=== PATIENT | male | born 1945 | race Caucasian/White ===

== ENCOUNTER → 2017-02-18 | Outpatient (CLI) | payer OTHER ==
[~2017-02-18] MED LIST: GLUC10007; GLUCOSAMINE 2000 MG PO; METO50TA16 PO; MULT-506 PO; NAPR1TAB9 PO; TELM40TA11 PO
[2017-02-18 17:39] LABS: SYNOVIAL FLUID APPEARANCE HAZY; SYNOVIAL FLUID COLOR YELLOW
[2017-02-23 04:30] LABS: LYME DNA PCR CSF OR SYNOVIAL Not detected (Not Detected); LYME DNA SOURCE Synovial Fluid
== END ==
LOC: C.LABSPEC 12:51
PROVIDERS: ATTEND Orthopaedic Surgery
DX: M25.461 Effusion, right knee (principal)

== ENCOUNTER → 2017-07-02 | Outpatient (CLI) | payer OTHER ==
[2017-07-02 12:38] LABS: BASO % 0.4 %; BASO ABS # 0.02 K/uL (0-0.2); COMPLETE YES; EOS % 4.1 %; HEMATOCRIT 44.3 % (42-52); IG% 0.2 %; LYMPH % 26.4 %; LYMPH ABS # 1.24 K/uL (1.2-3.4); MEAN CELL VOLUME 98.9 fL (80-100); MEAN CORPUSCULAR HEMOGLOBIN 34.4 pg (25-34); MEAN CORPUSCULAR HGB CONC 34.8 g/dl (32-36); MONO % 7.7 %; NEUT % 61.2 %; PLATELET COUNT 136 K/uL (130-400); RED BLOOD COUNT 4.48 M/uL (4.7-6.1); WHITE BLOOD COUNT 4.69 K/uL (4.8-10.8)
[2017-07-02 12:59] LABS: ALT/SGPT 40 U/L (12-78); AST/SGOT 19 U/L (15-37); BLOOD UREA NITROGEN 20 mg/dl (7-18); BUN/CREATININE RATIO 18.2 (10-20); CALCIUM 8.5 mg/dl (8.5-10.1); CARBON DIOXIDE 27 mmol/L (21-32); CHLORIDE 107 mmol/L (98-107); GLUCOSE 137 mg/dl (70-99); POTASSIUM 4.5 mmol/L (3.5-5.1); SODIUM 139 mmol/L (136-145)
[2017-07-02 13:05] LABS: ALB/GLOB RATIO 1.1 (0.9-2); ALKALINE PHOSPHATASE 68 U/L (45-117); CHOLESTEROL 254 mg/dl (0-200); CHOLESTEROL/HDL RATIO 7.7; HDL CHOLESTEROL 33 mg/dl; PROSTATE SPECIFIC ANTIGEN 0.709 ng/ml (0.000-4.000); TRIGLYCERIDES 598 mg/dl (0-150)
[2017-07-02 13:13] LABS: ESTIMATED AVERAGE GLUCOSE 137 mg/dl; HA1C FLAG Normal (Normal)
--- NOTE | 2017-07-09 16:23 | CODING QUERY MEDICAL NECESSITY ---
SUPPORTING DIAGNOSIS NEEDED A supporting diagnosis is required for the test/procedure performed on this patient in order for us to be reimbursed by the patient's insurance. Please provide a supporting diagnosis for the following test/procedure listed below next to the test name along with your signature. *If there is no additional diagnosis for this patient that would support the following test/procedure please document that below next to the test/procedure. Test(s)/Procedure(s) that require a supporting diagnosis: * HEMOGLOBIN A1C DIAGNOSIS: Provider Signature: Date: Thank you Linnette Koroma [employer] Once completed, please kindly fax back to [phone] For questions please call [phone]
== END | disposition home or self-care (01) ==
LOC: C.LABPVFM 08:41
PROVIDERS: ATTEND Internal Medicine
DX: N40.1 Benign prostatic hyperplasia with lower urinary tract symptoms (principal); R73.09 Other abnormal glucose

== ENCOUNTER → 2018-02-10 | Outpatient (CLI) | payer OTHER ==
[2018-02-10 13:11] LABS: BASO % 0.6 %; BASO ABS # 0.03 K/uL (0-0.2); EOS % 5.6 %; EOS ABS # 0.28 K/uL (0-0.5); HEMATOCRIT 47.1 % (42-52); IG# 0.01 K/uL (0.00-0.02); LYMPH % 23.6 %; LYMPH ABS # 1.19 K/uL (1.2-3.4); MEAN PLATELET VOLUME 11.4 fL (7.4-10.4); MONO % 7.5 %; MONO ABS # 0.38 K/uL (0.11-0.59); NEUT % 62.5 %; NEUT ABS # 3.15 K/uL (1.4-6.5); PLATELET COUNT 127 K/uL (130-400); RED CELL DISTRIBUTION WIDTH SD 47.5 fL (36.4-46.3); WHITE BLOOD COUNT 5.04 K/uL (4.8-10.8)
[2018-02-10 13:39] LABS: HEMOGLOBIN A1C 6.5 % (4.5-5.6)
[2018-02-10 13:53] LABS: ALBUMIN 3.7 gm/dl (3.4-5.0); ALT/SGPT 41 U/L (12-78); AST/SGOT 23 U/L (15-37); BLOOD UREA NITROGEN 22 mg/dl (7-18); CALCIUM 8.8 mg/dl (8.5-10.1); CARBON DIOXIDE 31 mmol/L (21-32); CHOLESTEROL 233 mg/dl (0-200); CREATININE 1.02 mg/dl (0.60-1.40); GLUCOSE 154 mg/dl (70-99); POTASSIUM 4.2 mmol/L (3.5-5.1); SODIUM 138 mmol/L (136-145)
[2018-02-10 13:57] LABS: ALKALINE PHOSPHATASE 59 U/L (45-117); LDL CHOLESTEROL CALCULATED 133 mg/dl; TOTAL PROTEIN 7.2 gm/dl (6.4-8.2)
== END | disposition home or self-care (01) ==
LOC: C.LABPVFM 10:41
PROVIDERS: ATTEND Internal Medicine
DX: I10 Essential (primary) hypertension (principal); R73.03 Prediabetes; N40.1 Benign prostatic hyperplasia with lower urinary tract symptoms; E78.5 Hyperlipidemia, unspecified; E78.1 Pure hyperglyceridemia; E78.6 Lipoprotein deficiency; R73.09 Other abnormal glucose

== ENCOUNTER 2024-12-19 12:40 | Inpatient (IN) ==
[2024-12-19 14:31] LABS: Basophils # (auto) 0.04 K/uL (0.00-0.20); Basophils % (auto) 0.6 %; Eosinophils # (auto) 0.11 K/uL (0.00-0.50); Eosinophils % (auto) 1.5 %; Hematocrit (blood only) 46.2 % (42.0-52.0); Hemoglobin 15.5 g/dl (14.0-18.0); Immature Granulocytes # (auto) 0.03 K/uL (0.01-0.20); Immature Granulocytes % (auto) 0.4 %; Lymphocytes # (auto) 0.72 K/uL (1.20-3.40); Lymphocytes % (auto) 10.1 %; Mean Corpuscular Hgb Conc 33.5 g/dL (32.0-36.0); Mean Corpuscular Volume 107.4 fL (80.0-100.0); Mean Platelet Volume 10.9 fL (9.4-12.4); Monocytes # (auto) 0.48 K/uL (0.11-0.59); Monocytes % (auto) 6.7 %; Neutrophils # (auto) 5.77 K/uL (1.40-6.50); Neutrophils % (auto) 80.7 %; Platelet Count 103 K/uL (130-400); RDW Coefficient of Variation 14.6 % (11.5-14.5); RDW Standard Deviation 58.4 fL (36.4-46.3); White Blood Count 7.15 K/ul (4.8-10.8)
--- NOTE | 2024-12-19 14:43 | Ultrasound Report ---
BILATERAL LOWER EXTREMITY VENOUS DOPPLER HISTORY: Acute penciling of the lower legs b/l leg swelling COMPARISON STUDY: None FINDINGS: Subcutaneous edema. There is normal compressibility, flow, and augmentation within the bila teral lower extremity deep venous systems. IMPRESSION: No DVT within the right or left lower extremity. ACT 112: Negative or not required by law. Electronically signed by: Abdulkadir Lipscomb M.D. 12/19/2024 2:41 PM
[2024-12-19 14:48] LABS: Albumin Globulin Ratio 1.5 (0.9-2); Albumin Level 4.2 gm/dl (3.4-5.0); BUN Creatinine Ratio 26.3 (10-20); Bilirubin,Total 1.1 mg/dl (0.2-1.0); Calcium 9.5 mg/dl (8.6-10.3); Creatinine Clr Calc Pharmacy 65.5 ml/min; Globulin 2.8 gm/dl (2.5-4.0); Potassium 4.5 mmol/L (3.5-5.1)
[2024-12-19 14:54] LABS: Partial Thromboplastin Time 26 Seconds (21-31); Prothrombin Time 11.3 Seconds (9.0-12.0)
[2024-12-19 15:16] LABS: Troponin I High Sensitivity 71.7 pg/ml (0-20)
--- NOTE | 2024-12-19 15:23 | XRay Report ---
XR chest 1V not portable HISTORY: 79 years-old Male SOB acute shortness of breath COMPARISON: None TECHNIQUE: PA view of the chest FINDINGS: Cardiac silhouette is enlarged. ORIF hardware of the right clavicle. Chronic bilateral rib fracture d eformities. No pneumothorax, pleural effusion or lobar airspace consolidation. IMPRESSION: Cardiomegaly without acute process. ACT 112: Negative or not required by law. The above report was generated using voice recognition software. It may contain grammatical, syntax o r spelling errors. Electronically signed by: Abdulkadir Lipscomb M.D. 12/19/2024 3:22 PM
[2024-12-19] MEDS: OPTIRAY 320 125ml IV ONE (17:48)
--- NOTE | 2024-12-19 18:15 | CT Scan Report ---
Exam: CT angiogram chest with the pulmonary embolus protocol Reason for exam: Leg swelling with elevated troponin, CHF. Rule out pulmonary embolus. Previous: None FINDINGS: There is good opacification of the pulmonary artery bilaterally. No filling defect to indicate embolus is seen on either side. Aorta shows extensive calcifications. Dissection cannot be evaluated due to lack of opacification. Severe coronary artery calcifications are present as well. There is cardiomegaly with small bilateral pleural effusions. Findings may represent mild chronic CHF. Lung zones remain essentially clear without acute appearing infiltrate or edema. IMPRESSION: 1. Negative for pulmonary embolus. 2. Cardiomegaly with small pleural effusions may indicate chronic CHF. Extensive coronary artery calcifications are present. 3. Essentially clear lung zones. Electronically signed by Humphrey Hyman 12-19-2024 6:15 PM
--- NOTE | 2024-12-19 18:49 | History & Physical Report ---
Date of Service December 19, 2024 Assessment & Plan (1) Congestive heart failure: Plan: Initially patient wished to be discharged from the emergency room however left ventricular ejection fraction appears reduced on POCUS at bedside and with his ongoing rapid ventricular rate he is amenable to admission at this time Acute heart failure with unknown ejection fraction Lasix 40mg IV daily Increase metoprolol succinate to 50mg PO BID Will hold telmisartan/HCTZ for potential switch to Entresto if LVEF confirmed < 40% on echocardiogram Consider SGLT2 inhibitor with concurrent diabetes diagnosis Strict I's and O's, daily weight TTE Consult cardiology (2) Atrial fibrillation with rapid ventricular response: Plan: New onset TSH 2.249 Start anticoagulation with Eliquis - [id number], no prior major evidence of bleeding Improve rate control with his already prescribed metoprolol succinate increasing to 50 mg p.o. BID Aim Mg > 2, K > 4 (3) Type 2 diabetes mellitus without complications: Plan: HbA1C 5.9 in June, repeat with AM labs Novolog for correction factor only, if needing frequently recommend adding Lantus Consider SGLT-2 inhibitor pending clinical course (4) Elevated MCV: Plan: Possibly concerning with his weight loss despite significant hypervolemia TSH normal, B12, folate, retic count, LDH, peripheral smear (5) Elevated troponin: Plan: Stable, consistent with demand ischemia in setting of heart failure and atrial fibrillation with rapid ventricular rate, no need to repeat Plan VTE Prophylaxis - Eliquis Diet - low-sodium, heart healthy, type 2 diabetes Disposition - admit to PCU Admission and Anticipated Discharge Date Admission Date: December 19, 2024 History of Present Illness Chief Complaint: Leg swelling Primary Care Provider: Corina Herrera MD Collins Greer is a 79-year-old male who presents to the ER with bilateral leg swelling and shortness of breath. He noticed swelling of the legs just today and tried calling his PCP but reports being unable to get a hold of anyone therefore decided to come to the emergency room. He reports his legs appeared better after coming to the emergency room. He was concerned about his leg swelling as this was something he was told to look out for after his steroid shots a week ago. He denies any chest pain, palpitations, presyncope, weight gain. He notes losing weight as he does not eat as much with his last appetite and is much less active over the last several months. No gastrointestinal or urinary symptoms. No fever or chills. On review of systems he does note shortness of breath getting gradually worse over several months but over the last 2 to 3 months has not changed much on exertion. No orthopnea or PND. No shortness of breath at rest. He drinks 2 shots of whiskey a day, no history of alcohol withdrawal. No tobacco or illicit drug use. Allergies Allergy/AdvReac Type Severity Reaction Status Date / Time adhesive tape Allergy Unknown RASH WITH Verified 12/11/24 08:45 WATER BEADS ON IT codeine Allergy Unknown HIVES, HAS Verified 12/11/24 08:45 HAD MORPHINE W/O PROBLEM coban Allergy Intermediate rash, Uncoded 12/11/24 08:45 blisters BANDAIDS Allergy Unknown RASH WITH Uncoded 12/11/24 08:45 WATER BEADS ON IT Home Medications Medication Instructions Recorded Confirmed Type multivitamin 1 tab PO DAILY 09/14/20 12/19/24 History tamsulosin 0.4 mg capsule 0.4 mg PO QAM #90 caps 03/22/24 12/19/24 Rx telmisartan 40 1 tab PO QAM #90 tabs 06/09/24 12/19/24 Rx mg-hydrochlorothiazide 12.5 mg tablet meloxicam 15 mg tablet 15 mg PO QAM #90 tabs 06/20/24 12/19/24 Rx allopurinol 300 mg tablet 300 mg PO QAM #90 tabs 09/29/24 12/19/24 Rx finasteride 5 mg tablet 5 mg PO QAM #90 tabs 09/29/24 12/19/24 Rx metformin 500 mg tablet 500 mg PO QAM #90 tabs 09/29/24 12/19/24 Rx metoprolol succinate 50 mg 50 mg PO QAM #90 tabs 09/29/24 12/19/24 Rx tablet,extended release 24 hr glucosamine sulfate 500 mg capsule 1,000 mg PO QAM 12/11/24 12/19/24 History Past Med/Surg History Problem List (Updated 12/19/24 @ 22:17 by Sameer Earl MD) Elevated MCV Elevated troponin (Acute) Congestive heart failure (Acute) Atrial fibrillation with rapid ventricular response (Acute) Skin lesion of scalp Thoracic compression fracture [id number] superior endplate Spinal stenosis of lumbar region Idiopathic polyneuropathy Lumbosacral radiculopathy Radicular pain of right lower extremity Ambulatory dysfunction Lumbar facet arthropathy Chronic low back pain Right thigh pain Shortness of breath Bilateral primary osteoarthritis of knee Thrombocytopenia (Acute) Lump of right breast (Acute) Low HDL (under 40) (Acute) Hypertriglyceridemia (Chronic) Dyslipidemia (Chronic) Closed right acetabular fracture (Acute) Type 2 diabetes mellitus without complications (Chronic) Eczema (Chronic) Pain in medial right lower extremity Tick bite Abnormal finding on ultrasound Cough Medical History History of eye problem Pre-diabetes Enlarged prostate Varicose vein of leg 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 Gout Hypertension Surgical History History of carpal tunnel surgery History of left knee surgery History of prior ablation treatment History of colonoscopy History of cholecystectomy History of arthroplasty Family History Mother Stroke Diabetes Hypertension Father Diabetes Brain cancer Denies family history of Ovarian cancer Prostate cancer Heart disease Myocardial infarction Breast cancer Colorectal cancer Social History Smoking Status: Former smoker Tobacco Type: Cigarettes Age Started Using Tobacco: 16; Age Quit Using Tobacco: 51; packs per day: 2; Second Hand Exposure: No; Do You Dip or Chew Tobacco: No; Hx Alcohol Use: Yes Alcohol type: beer Alcohol Intake Frequency: 4 or More x per/Week Alcohol Intake Frequency Comment: 1-2 beers a day Hx Substance Use: No Preferred Language: Tunisian Communication Ability: Effective 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 Beliefs That Will Affect Care: None marital status: Current Living Situation: Spouse current occupational status: retired How many Children do You have: 2 Feels Safe at Home: Yes Childhood Exposure to Second-Hand Smoke: Yes Diet: regular caffeine: Yes Dental Care, Regularly: Yes Physical Activity Frequency: 1-2 Times per Week Seatbelt Use: always Sunscreen Use: No Assistive Devices: Denture - Upper and Glasses Review of Systems Review of Systems: All systems reviewed & are unremarkable except as noted in HPI & below Physical Exam Constitutional: WD/WN, vitals as above ENMT: external ear and nose normal, oropharynx normal Respiratory: normal respiratory effort; no respiratory distress Auscultation: + diminished lung sounds (Bibasal); no crackles and no wheezes Cardiovascular: Rate/Rhythm: + tachycardic and + irregularly irregular Heart Sounds: no murmur Extremities: normal capillary refill and + pedal edema (3+ bilateral equal); no calf tenderness Gastrointestinal (Abdomen): normal bowel sounds, soft, nontender, no hepatosplenomegaly Musculoskeletal: no cyanosis or clubbing, extremities motor strength 5/5 Skin: no rashes, warm and dry Neurologic: moves all extremities and awake; not confused Psychiatric: A+Ox3, euthymic affect Results & Data Results & Data Vital Signs (Past 12 Hours) Vital Signs Temp Pulse Resp BP Pulse Ox O2 Del Method 12/19/24 16:44 98 H 12/19/24 16:36 99 H 17 96 Room Air 12/19/24 12:58 36.9 C 122 H 139/69 94 Room Air Laboratory Results Abnormal lab results 12/19/24 12/19/24 Range/Units 14:03 16:13 RBC 4.30 L (4.70-6.10) M/uL MCV 107.4 H (80.0-100.0) fL MCH 36.0 H (25.0-34.0) pg RDW Std Deviation 58.4 H (36.4-46.3) fL RDW Coeff of Rosi 14.6 H (11.5-14.5) % Plt Count 103 L (130-400) K/uL Lymph # (Auto) 0.72 L (1.20-3.40) K/uL BUN 26 H (6-23) mg/dl BUN/Creatinine Ratio 26.3 H (10-20) Glucose 112 H (70-99(Fasting)) mg/dl Total Bilirubin 1.1 H (0.2-1.0) mg/dl AST 40 H (13-39) U/L Troponin I High Sens 71.7 H* 69.6 H* (0-20) pg/ml Diagnostic Findings XR chest 1V not portable HISTORY: 79 years-old Male SOB acute shortness of breath COMPARISON: None TECHNIQUE: PA view of the chest FINDINGS: Cardiac silhouette is enlarged. ORIF hardware of the right clavicle. Chronic bilateral rib fracture deformities. No pneumothorax, pleural effusion or lobar airspace consolidation. IMPRESSION: Cardiomegaly without acute process. CT angiogram chest with the pulmonary embolus protocol Reason for exam: Leg swelling with elevated troponin, CHF. Rule out pulmonary embolus. Previous: None FINDINGS: There is good opacification of the pulmonary artery bilaterally. No filling defect to indicate embolus is seen on either side. Aorta shows extensive calcifications. Dissection cannot be evaluated due to lack of opacification. Severe coronary artery calcifications are present as well. There is cardiomegaly with small bilateral pleural effusions. Findings may represent mild chronic CHF. Lung zones remain essentially clear without acute appearing infiltrate or edema. IMPRESSION: 1. Negative for pulmonary embolus. 2. Cardiomegaly with small pleural effusions may indicate chronic CHF. Extensive coronary artery calcifications are present. 3. Essentially clear lung zones. BILATERAL LOWER EXTREMITY VENOUS DOPPLER HISTORY: Acute penciling of the lower legs b/l leg swelling COMPARISON STUDY: None FINDINGS: Subcutaneous edema. There is normal compressibility, flow, and augmentation within the bilateral lower extremity deep venous systems. IMPRESSION: No DVT within the right or left lower extremity. Medications Administered ER medications given: None ECG Rate (beats per minute): 103 Rhythm: atrial fibrillation Findings: + PVC and + left axis deviation Comparison ECG Date: from (27 Mar 2018) Change: the following changes noted (Atrial fibrillation has replaced sinus rhythm) Code Status & VTE Plan Code Status Full VTE Prophylaxis Plan VTE Prophylaxis will be ordered: Yes PG Care Time/CCT Total # of Minutes Spent Total Time Spent with Patient: Total time spent is greater than 50% in coordination of care (as documented) at patient's floor/unit and/or counseling patient: Coding Level of Care Code 44270 INT INP/OBS CARE 3/75MIN Diagnoses Congestive heart failure I50.9 Atrial fibrillation with rapid ventricular response I48.91 Type 2 diabetes mellitus without complication, without long-term current use of insulin E11.9 Diabetes mellitus intermediate teacher insulin use: without intermediate teacher use Elevated MCV R71.8 Elevated troponin R79.89 (3) Type 2 diabetes mellitus without complications Diabetes mellitus intermediate teacher insulin use: without longterm use Qualified Code(s): E11.9 - Type 2 diabetes mellitus without complications
--- NOTE | 2024-12-19 19:18 | Emergency Department Note ---
Impression & Plan Atrial fibrillation with rapid ventricular response, Congestive heart failure, Elevated troponin ED Provider Note NAME: CHIQUITA CRUZ AGE: 79 SEX: M : 1945 ARRIVES VIA: Walk-In INFORMANT: Patient, ED PROVIDER(S): Mignon Abbasi MD CHIEF COMPLAINT: Leg swelling HPI: This is a 79-year-old male present for leg swelling. Patient states that over the past 1 to 2 days he has noticed increasing leg swelling, bilaterally. He has had pain in his groin as well. No history of blood clots. He does have shortness of breath that is new. He reports no specific chest pain however. He otherwise reports no fevers, chills, nausea or vomiting. Never in the heart failure before. No A-fib history. No blood thinners on board. ROS: See above HPI for pertinent positives & negatives. A total of 10 systems reviewed and were otherwise negative. PAST MEDICAL HISTORY: See Below PAST SURGICAL HISTORY: See Below FAMILY HISTORY: See Below SOCIAL HISTORY: See Below HOME MEDICATIONS: See Below ALLERGIES: See Below VITALS: See Below PHYSICAL EXAMINATION: General: resting comfortably in no acute distress Head: Normocephalic and atraumatic Eyes: Normal inspection, extraocular muscles intact Ear, nose, throat: Normal external exam Neck: Normal range of motion Respiratory: lungs clear to auscultation bilaterally Cardiovascular: Irregularly irregular rate/rhythm, no murmur GI: soft, nontender, no guarding or rebound Extremities: nontender, moves all extremities Neuro: The patient awake and alert, appropriately conversive, no focal deficits, symmetric faces Skin: Warm, dry, and intact MEDICAL DECISION MAKING: This is a 79-year-old male present for leg swelling. Patient currently appears well with new onset A-fib. He also has shortness of breath as well. -Triage did perform x-ray/DVT study -X-ray shows cardiomegaly without acute process -DVT study is negative -ECG independently interpreted by me with atrial fibrillation at a rate of 103, left axis deviation, normal QRS, normal QTc, no ST segment elevations consistent with STEMI criteria -Lab sent at triage prior to my evaluation. This shows an elevated troponin up to 72. This may be from his A-fib. Also consider CHF. With new onset A-fib unclear etiology, also consider PE. Will do CT of the chest to evaluate. -Patient's second troponin is stable at 69 -CTA reveals no acute pulmonary embolism but does reveal signs of CHF -Due to new onset CHF as well as A-fib/Trope elevation will admit for further workup. Concern for recent cardiac event causing CHF/A-fib Differential diagnosis: PE, CHF, A-fib, ACS Independent History obtained from: Diagnostics interpreted by me: ECG: See above Cardiac Monitoring: An order was placed for continuous cardiac monitoring. The monitor shows a rate of 109 with atrial fibrillation rhythm. Past Med/Surg History Problem List (Updated 12/19/24 @ 20:31 by Mignon Abbasi MD) Elevated troponin (Acute) Congestive heart failure (Acute) Atrial fibrillation with rapid ventricular response (Acute) Skin lesion of scalp Thoracic compression fracture [id number] superior endplate Spinal stenosis of lumbar region Idiopathic polyneuropathy Lumbosacral radiculopathy Radicular pain of right lower extremity Ambulatory dysfunction Lumbar facet arthropathy Chronic low back pain Right thigh pain Shortness of breath Bilateral primary osteoarthritis of knee Encounter for examination following treatment at hospital Colon cancer screening Encounter for pre-operative examination Thrombocytopenia (Acute) Lump of right breast (Acute) Low HDL (under 40) (Acute) Hypertriglyceridemia (Chronic) Dyslipidemia (Chronic) Closed right acetabular fracture (Acute) Type 2 diabetes mellitus without complications (Chronic) Routine health maintenance (Chronic) Eczema (Chronic) Pain in medial right lower extremity Tick bite Abnormal finding on ultrasound Cough Medical History History of eye problem Pre-diabetes Enlarged prostate Varicose vein of leg 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 Gout Hypertension Surgical History History of carpal tunnel surgery History of left knee surgery History of prior ablation treatment History of colonoscopy History of cholecystectomy History of arthroplasty Family History Mother Stroke Diabetes Hypertension Father Diabetes Brain cancer Denies family history of Ovarian cancer Prostate cancer Heart disease Myocardial infarction Breast cancer Colorectal cancer Social History Smoking Status: Former smoker Tobacco Type: Cigarettes Age Started Using Tobacco: 16; Age Quit Using Tobacco: 51; packs per day: 2; Second Hand Exposure: No; Do You Dip or Chew Tobacco: No; Hx Alcohol Use: Yes Alcohol type: beer Alcohol Intake Frequency: 4 or More x per/Week Alcohol Intake Frequency Comment: 1-2 beers a day Hx Substance Use: No Preferred Language: Georgian Communication Ability: Effective Manager English Required: No Beliefs That Will Affect Care: None marital status: Current Living Situation: Spouse current occupational status: retired How many Children do You have: 2 Feels Safe at Home: Yes Childhood Exposure to Second-Hand Smoke: Yes Diet: regular caffeine: Yes Dental Care, Regularly: Yes Physical Activity Frequency: 1-2 Times per Week Seatbelt Use: always Sunscreen Use: No Assistive Devices: Denture - Upper and Glasses Allergies Allergies Allergy/AdvReac Type Severity Reaction Status Date / Time adhesive tape Allergy Unknown RASH WITH Verified 12/11/24 08:45 WATER BEADS ON IT codeine Allergy Unknown HIVES, HAS Verified 12/11/24 08:45 HAD MORPHINE W/O PROBLEM coban Allergy Intermediate rash, Uncoded 12/11/24 08:45 blisters BANDAIDS Allergy Unknown RASH WITH Uncoded 12/11/24 08:45 WATER BEADS ON IT Home Meds Home Medications Medication Instructions Recorded Confirmed multivitamin 1 tab PO DAILY 09/14/20 12/19/24 glucosamine sulfate 500 mg capsule 1,000 mg PO QAM 12/11/24 12/19/24 Previous Rx's Medication Instructions Recorded tamsulosin 0.4 mg capsule 0.4 mg PO QAM #90 caps 03/22/24 telmisartan 40 1 tab PO QAM #90 tabs 06/09/24 mg-hydrochlorothiazide 12.5 mg tablet meloxicam 15 mg tablet 15 mg PO QAM #90 tabs 06/20/24 allopurinol 300 mg tablet 300 mg PO QAM #90 tabs 09/29/24 finasteride 5 mg tablet 5 mg PO QAM #90 tabs 09/29/24 metformin 500 mg tablet 500 mg PO QAM #90 tabs 09/29/24 metoprolol succinate 50 mg 50 mg PO QAM #90 tabs 09/29/24 tablet,extended release 24 hr Results & Data (ED) Vital Signs Vital Signs - 24 hr 12/19/24 12:58 12/19/24 16:36 12/19/24 16:44 Temperature 36.9 C Temperature Source Temporal Artery Scan Pulse Rate 122 H 99 H 98 H Pulse Rate [Left Apical] Pulse Rate from SpO2 Sensor 101 H Pulse Rhythm Regular Pulse Strength Normal Respiratory Rate 17 Respiratory Effort / Characteristics Non-Labored Spontaneous Respiratory Depth Normal Respiratory Pattern Regular Blood Pressure 139/69 Blood Pressure [Right Arm] Blood Pressure Mean 92 Blood Pressure Mean [Right Arm] Pulse Oximetry 94 96 Oxygen Delivery Method Room Air Room Air Sepsis Recent Fever Within 48 Hours No Sepsis New/Unexplained Change in Mental Status N/A Sepsis Action Taken by Nursing No Action Required 12/19/24 16:48 12/19/24 18:18 12/19/24 19:00 Temperature Temperature Source Pulse Rate 103 H 99 H 103 H Pulse Rate [Left Apical] Pulse Rate from SpO2 Sensor 99 H 102 H 97 H Pulse Rhythm Pulse Strength Respiratory Rate 19 18 18 Respiratory Effort / Characteristics Respiratory Depth Respiratory Pattern Blood Pressure 139/103 H 146/104 H 141/110 H Blood Pressure [Right Arm] Blood Pressure Mean 115 118 120 Blood Pressure Mean [Right Arm] Pulse Oximetry 95 95 96 Oxygen Delivery Method Room Air Room Air Room Air Sepsis Recent Fever Within 48 Hours Sepsis New/Unexplained Change in Mental Status Sepsis Action Taken by Nursing 12/19/24 20:07 12/19/24 20:23 Temperature Temperature Source Pulse Rate 111 H Pulse Rate [Left Apical] 104 H Pulse Rate from SpO2 Sensor Pulse Rhythm Pulse Strength Respiratory Rate 24 Respiratory Effort / Characteristics Non-Labored Spontaneous Respiratory Depth Normal Respiratory Pattern Regular Blood Pressure Blood Pressure [Right Arm] 144/108 H Blood Pressure Mean Blood Pressure Mean [Right Arm] 120 Pulse Oximetry 95 Oxygen Delivery Method Room Air Sepsis Recent Fever Within 48 Hours Sepsis New/Unexplained Change in Mental Status Sepsis Action Taken by Nursing Laboratory Data 12/19/24 14:03 12/19/24 14:03 Lab Results 12/19/24 12/19/24 12/19/24 Range/Units 14:03 16:13 20:07 WBC 7.15 (4.8-10.8) K/ul RBC 4.30 L (4.70-6.10) M/uL Hgb 15.5 (14.0-18.0) g/dl Hct 46.2 (42.0-52.0) % MCV 107.4 H (80.0-100.0) fL MCH 36.0 H (25.0-34.0) pg MCHC 33.5 (32.0-36.0) g/dL RDW Std Deviation 58.4 H (36.4-46.3) fL RDW Coeff of Rosi 14.6 H (11.5-14.5) % Plt Count 103 L (130-400) K/uL MPV 10.9 (9.4-12.4) fL Immature Gran % (Auto) 0.4 % Neut % (Auto) 80.7 % Lymph % (Auto) 10.1 % [place] % (Auto) 6.7 % Eos % (Auto) 1.5 % Baso % (Auto) 0.6 % Neut # (Auto) 5.77 (1.40-6.50) K/uL Lymph # (Auto) 0.72 L (1.20-3.40) K/uL [place] # (Auto) 0.48 (0.11-0.59) K/uL Eos # (Auto) 0.11 (0.00-0.50) K/uL Baso # (Auto) 0.04 (0.00-0.20) K/uL Immature Gran # (Auto) 0.03 (0.01-0.20) K/uL PT 11.3 (9.0-12.0) Seconds INR 1.0 (0.9-1.1) APTT 26 (21-31) Seconds PTT Ratio 1.0 Sodium 140 (136-145) mmol/L Potassium 4.5 (3.5-5.1) mmol/L Chloride 103 (98-107) mmol/L Carbon Dioxide 30 (21-32) mmol/L Anion Gap 7 (3-11) BUN 26 H (6-23) mg/dl Creatinine 0.99 (0.6-1.4) mg/dl Est Cr Clr Drug Dosing 65.5 ml/min eGFR 77.97 BUN/Creatinine Ratio 26.3 H (10-20) Glucose 112 H (70-99(Fasting)) mg/dl Calcium 9.5 (8.6-10.3) mg/dl Magnesium 1.6 L (1.7-2.4) mg/dl Total Bilirubin 1.1 H (0.2-1.0) mg/dl AST 40 H (13-39) U/L ALT 30 (7-52) U/L Alkaline Phosphatase 67 (34-104) U/L Troponin I High Sens 71.7 H* 69.6 H* (0-20) pg/ml Total Protein 7.0 (6.0-8.3) gm/dl Albumin 4.2 (3.4-5.0) gm/dl Globulin 2.8 (2.5-4.0) gm/dl Albumin/Globulin Ratio 1.5 (0.9-2) TSH 2.249 (0.300-4.500) uIu/ml Urine Color Dark Yellow Urine Appearance Clear (Clear) Urine pH 5.5 (4.5-7.5) Ur Specific [place] 1.020 (1.000-1.030) Urine Protein Negative (Negative) Urine Glucose (UA) Negative (Negative) Urine Ketones 1+ H (Negative) Urine Blood Negative (Negative) Urine Nitrite Negative (Negative) Urine Bilirubin Negative (Negative) Urine Urobilinogen Negative (Negative) Ur Leukocyte Esterase Negative (Negative) Administered Medications Discontinued Medications Ioversol (Optiray 320 125ml) 119 ml IV ONCE ONE Stop: 12/19/24 17:49 Last Admin: 12/19/24 17:48 Dose: 119 ml Documented By: KALPANA Imaging Data Radiologist's Impression: Chest X-Ray 12/19/24 13:05 XR chest 1V not portable HISTORY: 79 years-old Male SOB acute shortness of breath COMPARISON: None TECHNIQUE: PA view of the chest FINDINGS: Cardiac silhouette is enlarged. ORIF hardware of the right clavicle. Chronic bilateral rib fracture deformities. No pneumothorax, pleural effusion or lobar airspace consolidation. IMPRESSION: Cardiomegaly without acute process. ACT 112: Negative or not required by law. The above report was generated using voice recognition software. It may contain grammatical, syntax or spelling errors. Electronically signed by: Abdulkadir Lipscomb M.D. 12/19/2024 3:22 PM Venous Doppler Study 12/19/24 13:10 BILATERAL LOWER EXTREMITY VENOUS DOPPLER HISTORY: Acute penciling of the lower legs b/l leg swelling COMPARISON STUDY: None FINDINGS: Subcutaneous edema. There is normal compressibility, flow, and augmentation within the bilateral lower extremity deep venous systems. IMPRESSION: No DVT within the right or left lower extremity. ACT 112: Negative or not required by law. Electronically signed by: Abdulkadir Lipscomb M.D. 12/19/2024 2:41 PM Chest CTA 12/19/24 17:01 Exam: CT angiogram chest with the pulmonary embolus protocol Reason for exam: Leg swelling with elevated troponin, CHF. Rule out pulmonary embolus. Previous: None FINDINGS: There is good opacification of the pulmonary artery bilaterally. No filling defect to indicate embolus is seen on either side. Aorta shows extensive calcifications. Dissection cannot be evaluated due to lack of opacification. Severe coronary artery calcifications are present as well. There is cardiomegaly with small bilateral pleural effusions. Findings may represent mild chronic CHF. Lung zones remain essentially clear without acute appearing infiltrate or edema. IMPRESSION: 1. Negative for pulmonary embolus. 2. Cardiomegaly with small pleural effusions may indicate chronic CHF. Extensive coronary artery calcifications are present. 3. Essentially clear lung zones. Electronically signed by Humphrey Hyman 12-19-2024 6:15 PM Discharge Plan Visit Data Chief Complaint: Swelling/Edema to Extremity Stated Complaint: SWELLING IN LEGS, GROIN DISCOMFORT ED Provider: Mignon Abbasi Discharge Problem: Atrial fibrillation with rapid ventricular response, Congestive heart failure, Elevated troponin Forms Stand Alone Forms: [email or web address] Prescriptions Prescriptions: No Action telmisartan-hydrochlorothiazid 40-12.5 mg tablet 1 tab PO QAM Qty: 90 1RF meloxicam 15 mg tablet 15 mg PO QAM Qty: 90 1RF metoprolol succinate 50 mg tablet extended release 24 hr 50 mg PO QAM Qty: 90 1RF finasteride 5 mg tablet 5 mg PO QAM Qty: 90 1RF allopurinol 300 mg tablet 300 mg PO QAM Qty: 90 1RF metformin 500 mg tablet 500 mg PO QAM Qty: 90 1RF glucosamine sulfate 500 mg capsule 1,000 mg PO QAM Patient Comments: 500 mg PO TAKE 2 CAPSULES DAILY ; tamsulosin 0.4 mg capsule 0.4 mg PO QAM Qty: 90 3RF multivitamin Tablet 1 tab PO DAILY Patient Comments: PO TAKE 1 TABLET DAILY ; Referrals Referrals: Corina Herrera MD [Primary Care Provider] -
[2024-12-19 20:09] LABS: Thyroid Stimulating Hormone 2.249 uIu/ml (0.300-4.500)
[2024-12-19 20:20] LABS: Appearance Urine Clear (Clear); Bilirubin Urine Negative (Negative); Blood Urine Negative (Negative); Color Urine Dark Yellow; Glucose Urine UA Negative (Negative); Ketones Urine 1+ (Negative); Leukocyte Esterase Urine Negative (Negative); Nitrite Urine Negative (Negative); Protein Urine Negative (Negative); Urobilinogen Urine Negative (Negative); pH Urine 5.5 (4.5-7.5)
[2024-12-19 20:25] LABS: Magnesium 1.6 mg/dl (1.7-2.4)
[2024-12-19 20:31] LABS: Folate (Folic Acid),Ser orPlas > 22.30 ng/ml (>5.38)
[2024-12-19 20:32] LABS: Vitamin B12 260 pg/ml (180-914)
[2024-12-19] MEDS: FUROSEMIDE 40 MG/4 ML VIAL IV STA (20:51)
[2024-12-19 21:03] LABS: Protein Creatinine Ratio Urine 0.1 (0-0.2)
--- NOTE | 2024-12-19 21:12 | Electrocardiogram Report ---
Test Reason : Blood Pressure : */* mmHG Vent. Rate : 103 BPM Atrial Rate : * BPM P-R Int : * ms QRS Dur : 102 ms QT Int : 360 ms P-R-T Axes : * -68 67 degrees QTcB Int : 471 ms Atrial fibrillation with rapid ventricular response with premature ventricular or aberrantly conducte d complexes Left axis deviation Inferior infarct , age undetermined Anterior infarct , age undetermined Abnormal ECG When compared with ECG of 04-Apr-2018 21:11, QRS duration has increased Premature ventricular complexes are now Present Atrial fibrillation has replaced Sinus rhythm Confirmed by Timoteo Jennings ([id number]) on 12/19/2024 9:12:07 PM Referred By: Confirmed By: Timoteo Jennings
[2024-12-19] MEDS: MAGNESIUM SULFATE / D5W 1 GM/100 ML BAG IV SCH (21:57)
[2024-12-19] MEDS ORDERED: GLUCOSE 10 TAB/TUBE PO PRN (22:09)
[2024-12-19] MEDS ORDERED: DEXTROSE 50% 50 ML SYRINGE IV PRN (22:09)
[2024-12-19] MEDS ORDERED: GLUCOSE 40% GEL 15 GM TUBE PO PRN (22:09)
[2024-12-19] MEDS ORDERED: CARBOHYDRATES FOR HYPOGLYCEMIA PO PRN (22:09)
[2024-12-19] MEDS ORDERED: GLUCAGON FOR INJ 1 MG VIAL SQ PRN (22:09)
[2024-12-19] MEDS: METOPROLOL SUCC 50MG EXT REL TAB PO SCH (22:18)
[2024-12-19] MEDS: APIXABAN 5 MG TABLET PO SCH (22:19)
[2024-12-19] MEDS: INSULIN ASPART PER UNIT CHARGE SC SCH (22:26)
[2024-12-20 03:07] VITALS: TEMP 97.5
[2024-12-20 06:39] LABS: BUN Creatinine Ratio 25.5 (10-20); Calcium 8.8 mg/dl (8.6-10.3); Creatinine Clr Calc Pharmacy 76.7 ml/min; Magnesium 1.9 mg/dl (1.7-2.4); Potassium 4.2 mmol/L (3.5-5.1)
[2024-12-20 06:55] LABS: Hematocrit (blood only) 42.3 % (42.0-52.0); Hemoglobin 14.6 g/dl (14.0-18.0); Mean Corpuscular Hemoglobin 36.7 pg (25.0-34.0); Mean Corpuscular Hgb Conc 34.5 g/dL (32.0-36.0); Mean Corpuscular Volume 106.3 fL (80.0-100.0); Mean Platelet Volume 11.2 fL (9.4-12.4); Platelet Count 87 K/uL (130-400); RDW Coefficient of Variation 14.5 % (11.5-14.5); RDW Standard Deviation 57.1 fL (36.4-46.3); Red Blood Count 3.98 M/uL (4.70-6.10); White Blood Count 5.59 K/ul (4.8-10.8)
[2024-12-20 06:56] LABS: Basophils # (auto) 0.05 K/uL (0.00-0.20); Basophils % (auto) 0.9 %; Eosinophils # (auto) 0.14 K/uL (0.00-0.50); Eosinophils % (auto) 2.5 %; Immature Granulocytes # (auto) 0.02 K/uL (0.01-0.20); Immature Granulocytes % (auto) 0.4 %; Lymphocytes # (auto) 1.03 K/uL (1.20-3.40); Lymphocytes % (auto) 18.4 %; Monocytes % (auto) 10.7 %; Neutrophils # (auto) 3.75 K/uL (1.40-6.50); Neutrophils % (auto) 67.1 %; Platelet Estimate Decreased (Normal); RBC Morphology Unremarkable; Reticulocyte % 1.52 % (0.50-2.00)
[2024-12-20 07:16] LABS: Estimated Average Glucose 117 mg/dl; Hemoglobin A1C 5.7 % (4.5-5.6)
[2024-12-20 08:15] VITALS: BP 130/85; PULSE 77; RESP 20; O2SAT 97
[2024-12-20] MEDS: allopurinoL 300 MG TAB PO SCH (09:24)
[2024-12-20] MEDS: FUROSEMIDE 40 MG/4 ML VIAL IV SCH (09:24)
[2024-12-20] MEDS: TAMSULOSIN HCL 0.4 MG CAP PO SCH (09:24)
[2024-12-20] MEDS: CYANOCOBALAMIN 1000 MCG/ML VIAL IM SCH (09:25)
--- NOTE | 2024-12-20 09:41 | Cardiology Consultation ---
Date of Consultation December 20, 2024 Assessment & Plan (1) HFrEF (heart failure with reduced ejection fraction): (2) Atrial fibrillation with rapid ventricular response: (3) NSTEMI (non-ST elevated myocardial infarction): (4) Thrombocytopenia: Plan Given both LV and RV dilatation and decreased EF, the cardiomyopathy may more favor NONischemic etiologies due to Afib with RVR vs ETOH?? with low platelets, increased MCV would check B12 folate and recommend absolute ETOH cessation. Agree with NOAC and HR control with increased BB. Can cont his ARB telmesartan for now, but DC HCTZ in favor of loop diuretic. If EF does not improve post cardioversion, with change to Entresto. In addition, would add Jardiance for CHF. I will have a monitor MCOT set up for him at time of DC so I can follow the Afib and med titrate appropriately. I will see in 2 weeks in office-if he remains in Afib, will set up for OP cardioversion. EVENTUALLy will do ischemic work up after Afib is controlled. I think he is stable for DC later today. History of Present Illness Reason for Consultation: CHF new Afib [facility] Attending Physician: Shilo Roe MD History of Present Illness Collins Greer is a 79-year-old male who presents to the ER with bilateral leg swelling and shortness of breath. He noticed swelling of the legs just today and tried calling his PCP but reports being unable to get a hold of anyone the refore decided to come to the emergency room. In retrospect, he has been having increasing SOB as well as fatigue x 6months to a year. Has significant edema. Denies awareness of rapid HR or Afib however. DM x several years but controlled with just metformen. Not on statin. No prior CV work up in the past. He was concerned about his leg swelling as this was something he was told to look out for after his steroid shots a week ago. He denies any chest pain, palpitations, presyncope, weight gain. He notes losing weight as he does not eat as much with his last appetite and is much less active over the last several months. ECHO done this am shows moderately severe LV dysfunction with global hypokinesis, EF 30% range; both atrial large RA >LA, RV also appears hypokinetic and dilated; PA pressures about 40mmHg. Apparently has 2 shots of ETOH daily. Allergies Allergy/AdvReac Type Severity Reaction Status Date / Time adhesive tape Allergy Unknown RASH WITH Verified 12/11/24 08:45 WATER BEADS ON IT codeine Allergy Unknown HIVES, HAS Verified 12/11/24 08:45 HAD MORPHINE W/O PROBLEM coban Allergy Intermediate rash, Uncoded 12/11/24 08:45 blisters BANDAIDS Allergy Unknown RASH WITH Uncoded 12/11/24 08:45 WATER BEADS ON IT Home Medications Medication Instructions Recorded Confirmed Type multivitamin 1 tab PO DAILY 09/14/20 12/19/24 History tamsulosin 0.4 mg capsule 0.4 mg PO QAM #90 caps 03/22/24 12/19/24 Rx telmisartan 40 1 tab PO QAM #90 tabs 06/09/24 12/19/24 Rx mg-hydrochlorothiazide 12.5 mg tablet meloxicam 15 mg tablet 15 mg PO QAM #90 tabs 06/20/24 12/19/24 Rx allopurinol 300 mg tablet 300 mg PO QAM #90 tabs 09/29/24 12/19/24 Rx finasteride 5 mg tablet 5 mg PO QAM #90 tabs 09/29/24 12/19/24 Rx metformin 500 mg tablet 500 mg PO QAM #90 tabs 09/29/24 12/19/24 Rx metoprolol succinate 50 mg 50 mg PO QAM #90 tabs 09/29/24 12/19/24 Rx tablet,extended release 24 hr glucosamine sulfate 500 mg capsule 1,000 mg PO QAM 12/11/24 12/19/24 History Patient History Medical History History of eye problem Pre-diabetes Enlarged prostate Varicose vein of leg 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 Gout Hypertension Surgical History History of carpal tunnel surgery History of left knee surgery History of prior ablation treatment History of colonoscopy History of cholecystectomy History of arthroplasty Family History Mother Stroke Diabetes Hypertension Father Diabetes Brain cancer Denies family history of Ovarian cancer Prostate cancer Heart disease Myocardial infarction Breast cancer Colorectal cancer Social History Smoking Status: Former smoker Tobacco Type: Cigarettes Age Started Using Tobacco: 16; Age Quit Using Tobacco: 51; packs per day: 2; Cigarettes Per Day: 2 PPD; Smoking End Date: 1974; Second Hand Exposure: Yes; Do You Dip or Chew Tobacco: No; Tobacco Cessation Education Requested by Patient: No Hx Alcohol Use: Yes Alcohol type: hard liquor Alcohol Intake Frequency: 4 or More x per/Week Alcohol Intake Frequency Comment: 1-2 beers a day Hx Substance Use: No Preferred Language: Urdu Communication Ability: Effective Candy Mixer Required: No Beliefs That Will Affect Care: None marital status: Current Living Situation: Spouse Current Living Situation Comment: Lives w/ spouse current occupational status: retired How many Children do You have: 2 Other Information That Helps Us Care for You: No Feels Safe at Home: Yes Safety Concerns: Feels Safe At This Time Childhood Exposure to Second-Hand Smoke: Yes Diet: regular caffeine: Yes Dental Care, Regularly: Yes Physical Activity Frequency: 1-2 Times per Week Seatbelt Use: always Sunscreen Use: No Assistive Devices: Cane, Denture - Upper and Glasses Review of Systems Review of Systems: All systems reviewed & are unremarkable except as noted in HPI & below Physical Exam Physical Exam: AAO x 3 in NAD lying comfortably in BED, not SOB Neck: +JVD Respiratory: rales at bases b/l 1/3 way up Cardiovascular: irregular no murmurs appreciated +2 edema pitting b/l Results & Data Vital Signs (Past 12 Hours) Vital Signs Temp Pulse Pulse Resp BP Pulse Ox Pulse Ox 12/20/24 08:14 36.4 C L 77 20 130/85 97 12/20/24 07:16 73 12/20/24 03:06 36.4 C L 88 16 117/80 98 12/19/24 23:05 36.8 C 78 21 121/71 94 12/19/24 21:42 95 O2 Del Method O2 Del Method 12/20/24 08:14 Room Air 12/20/24 07:16 12/20/24 03:06 Room Air 12/19/24 23:05 Room Air 12/19/24 21:42 Room Air Laboratory Results Abnormal lab results 12/19/24 12/19/2412/19/25 Range/Units 14:03 16:13 20:07 RBC 4.30 L (4.70-6.10) M/uL MCV 107.4 H (80.0-100.0) fL MCH 36.0 H (25.0-34.0) pg RDW Std Deviation 58.4 H (36.4-46.3) fL RDW Coeff of Rosi 14.6 H (11.5-14.5) % Plt Count 103 L (130-400) K/uL Lymph # (Auto) 0.72 L (1.20-3.40) K/uL [place] # (Auto) (0.11-0.59) K/uL Platelet Estimate (Normal) BUN 26 H (6-23) mg/dl BUN/Creatinine Ratio 26.3 H (10-20) Glucose 112 H (70-99(Fasting)) mg/dl POC Glucose (70-99) mg/dl Hemoglobin A1c (4.5-5.6) % Magnesium 1.6 L (1.7-2.4) mg/dl Total Bilirubin 1.1 H (0.2-1.0) mg/dl AST 40 H (13-39) U/L Troponin I High Sens 71.7 H* 69.6 H* (0-20) pg/ml Urine Ketones 1+ H (Negative) U Random Total Protein 15.0 H (0-11.9) mg/dl 12/19/24 12/20/24 12/20/24 Range/Units 22:22 06:02 07:55 RBC 3.98 L (4.70-6.10) M/uL MCV 106.3 H (80.0-100.0) fL MCH 36.7 H (25.0-34.0) pg RDW Std Deviation 57.1 H (36.4-46.3) fL RDW Coeff of Rosi (11.5-14.5) % Plt Count 87 L (130-400) K/uL Lymph # (Auto) 1.03 L (1.20-3.40) K/uL [place] # (Auto) 0.60 H (0.11-0.59) K/uL Platelet Estimate Decreased L (Normal) BUN 24 H (6-23) mg/dl BUN/Creatinine Ratio 25.5 H (10-20) Glucose 107 H (70-99(Fasting)) mg/dl POC Glucose 147 H 119 H (70-99) mg/dl Hemoglobin A1c 5.7 H (4.5-5.6) % Magnesium (1.7-2.4) mg/dl Total Bilirubin (0.2-1.0) mg/dl AST (13-39) U/L Troponin I High Sens (0-20) pg/ml Urine Ketones (Negative) U Random Total Protein (0-11.9) mg/dl Diagnostic Findings ECHO as above Medications Administered Allopurinol (Allopurinol 300 Mg Tab) 300 mg PO [facility] Stop: 01/19/25 08:59 Last Admin: 12/20/24 09:24 Dose: 300 mg Documented By: LULU Apixaban (Apixaban 5 Mg Tablet) 5 mg PO BID [facility] Stop: 01/18/25 21:44 Last Admin: 12/20/24 09:24 Dose: 5 mg Documented By: Admin: 12/19/24 22:19 Dose: 5 mg Documented By: JAJA Cyanocobalamin (Cyanocobalamin 1000 Mcg/Ml Vial) 1,000 mcg IM [facility] Stop: 12/27/24 08:59 Last Admin: 12/20/24 09:25 Dose: 1,000 mcg Documented By: LULU Furosemide (Furosemide 40 Mg/4 Ml Vial) 40 mg IV [facility] Stop: 01/19/25 08:59 Last Admin: 12/20/24 09:24 Dose: 40 mg Documented By: LULU Insulin Aspart (Insulin Aspart Per Unit Charge) 0 units SC [facility] Stop: 01/18/25 22:14 Last Admin: 12/20/24 08:30 Dose: Not Given Documented By: Admin: 12/19/24 22:26 Dose: 1 units Documented By: JAJA Co-signed By: AKP Metoprolol Succinate (Metoprolol Succ 50mg Ext Rel Tab) 50 mg PO BID [facility] Stop: 01/18/25 21:44 Last Admin: 12/20/24 09:24 Dose: 50 mg Documented By: Admin: 12/19/24 22:18 Dose: 50 mg Documented By: JAJA Tamsulosin HCl (Tamsulosin Hcl 0.4 Mg Cap) 0.4 mg PO [facility] Stop: 01/19/25 08:59 Last Admin: 12/20/24 09:24 Dose: 0.4 mg Documented By: LULU ECG Additional Comments: Afib with RVR NSIVCD
[2024-12-20] MEDS: FINASTERIDE 5 MG TAB PO SCH (10:57)
--- NOTE | 2024-12-20 11:18 | Discharge Summary ---
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 BID Aim Mg > 2, K > 4 (3) Type 2 diabetes mellitus without complications: HbA1C 5.9 in June, repeat with AM labs Novolog for correction factor only, if needing frequently recommend adding Lantus Consider SGLT-2 inhibitor pending clinical course (4) Elevated MCV: Possibly concerning with his weight loss despite significant hypervolemia TSH normal, B12, folate, retic count, LDH, peripheral smear (5) Elevated troponin: Stable, consistent with demand ischemia in setting of heart failure and atrial fibrillation with rapid ventricular rate, no need to repeat Plan VTE Prophylaxis - Eliquis Diet - low-sodium, heart healthy, type 2 diabetes Disposition - admit to PCU Admission HPI Per Admitting Provider Collins Greer is a 79-year-old male who presents to the ER with bilateral leg swelling and shortness of breath. He noticed swelling of the legs just today and tried calling his PCP but reports being unable to get a hold of anyone therefore decided to come to the emergency room. He reports his legs appeared better after coming to the emergency room. He was concerned about his leg swelling as this was something he was told to look out for after his steroid shots a week ago. He denies any chest pain, palpitations, presyncope, weight gain. He notes losing weight as he does not eat as much with his last appetite and is much less active over the last several months. No gastrointestinal or urinary symptoms. No fever or chills. On review of systems he does note shortness of breath getting gradually worse over several months but over the last 2 to 3 months has not changed much on exertion. No orthopnea or PND. No shortness of breath at rest. He drinks 2 shots of whiskey a day, no history of alcohol withdrawal. No tobacco or illicit drug use. Discharge Exam GENERAL APPEARANCE NAD, activity normal for age, well developed/ well nourished, no cyanosis, pallor, or diaphoresis. EYES lids/conjunctiva normal. EARS/NOSE/THROAT Mucous membranes moist, nares normal, lips/teeth normal uvula midline without oral pharyngeal erythema, exudate or swelling TMs normal bilaterally. No lymphangitis/lymphedema. HEAD/NECK normocephalic atraumatic, no facial trauma, neck is supple. RESPIRATORY respiratory effort normal, speaks in full sentences, no tripod position, no accessory muscle use. Lungs clear to auscultation without rhonchi, wheezes, rales CARDIAC Regular rate and rhythm, no edema. ABDOMINAL Soft, ND/NT. No evidence of fluid wave. No pulsatile masses on exam, rebound tenderness, Boyce sign or pain over Mcburney's point. MUSCLES/EXTREMITIES No abnormal range of motion, no swelling. SKIN Warm, pink and dry. No rashes, dermatoses, petechiae or lesions. NEUROLOGICAL Speech is clear and appropriate. Normal level of consciousness. Gait and coordination are normal. 5/5 strength in all extremities. PSYCH Normal mood and affect. Judgement/competence is appropriate Discharge Plan Discharge Items Patient Disposition: Home - Self-Care Reason For Visit: A. FIB RVR, HEART FAILURE Discharge Diagnosis: afib with RVR, CHF Activity: Resume your previous activity Non-emergency contact: Primary Care Provider Call non-emergency contact if: you have any medication questions Follow-up/Referrals: Corina Herrera MD [Primary Care Provider] - Diet: Carb Consistent or DM2 Addtl Attending Provider Instructions: f/u with cardiology in 2 weeks Pending Studies at Discharge: No Stand-Alone Forms: My [employer], Smoking Cessation Medications and DC Order Prescriptions: New metoprolol succinate 50 mg Tablet Extended Release 24 Hr 100 mg PO BID Qty: 60 0RF Eliquis 5 mg Tablet 5 mg PO BID Qty: 60 0RF Jardiance 25 mg tablet 25 mg PO DAILY Qty: 30 0RF furosemide [Lasix] 40 mg tablet 40 mg PO DAILY Qty: 30 0RF Continued telmisartan-hydrochlorothiazid 40-12.5 mg tablet 1 tab PO QAM Qty: 90 1RF meloxicam 15 mg tablet 15 mg PO QAM Qty: 90 1RF finasteride 5 mg tablet 5 mg PO QAM Qty: 90 1RF allopurinol 300 mg tablet 300 mg PO QAM Qty: 90 1RF metformin 500 mg tablet 500 mg PO QAM Qty: 90 1RF glucosamine sulfate 500 mg capsule 1,000 mg PO QAM Patient Comments: 500 mg PO TAKE 2 CAPSULES DAILY ; tamsulosin 0.4 mg capsule 0.4 mg PO QAM Qty: 90 3RF multivitamin Tablet 1 tab PO DAILY Patient Comments: PO TAKE 1 TABLET DAILY ; Discontinued metoprolol succinate 50 mg tablet extended release 24 hr 50 mg PO QAM Qty: 90 1RF Discharge Orders: Discharge Order (Routine); Ordered 12/20/24 Ordered By: Shilo Roe Admission Data Admit Date/Time: 12/19/24 19:50 Attending Provider: Shilo Roe Admit Provider: Sameer Earl Primary Care Provider: Corina Herrera Other Providers: Sameer Earl; Kateryna Flores Hospital Stay Data Consultations 12/19/24 18:34 ED Decision to Admit Stat 12/19/24 21:42 Consult Cardiology Routine Diagnostic Imagining Performed 12/19/24 13:10 US venous doppler LE BI Stat 12/19/24 17:01 CT for pulmonary embolism PE [CT angio chest PE protocol] Stat Pending Results Patient Have Any Pending Studies at Discharge: No Discharge Instructions Given to Patient (Per Discharging Provider) f/u with cardiology in 2 weeks Total Time Total Time Spent Total Time Spent (In Minutes): 50 Coding Level of Care Code 21568 INP/OBS DISCH >30 MIN Diagnoses Congestive heart failure I50.9 Atrial fibrillation with rapid ventricular response I48.91 Type 2 diabetes mellitus without complication, without long-term current use of insulin E11.9 Diabetes mellitus halfway insulin use: without long term care social worker use Elevated MCV R71.8 Elevated troponin R79.89
[2024-12-20] MEDS: Nursing to Pharmacy Communication SCH (12:27)
--- NOTE | 2024-12-20 13:00 | Electrocardiogram Report ---
Test Reason : Blood Pressure : */* mmHG Vent. Rate : 82 BPM Atrial Rate : 344 BPM P-R Int : * ms QRS Dur : 108 ms QT Int : 412 ms P-R-T Axes : * -72 57 degrees QTcB Int : 481 ms Atrial fibrillation with premature ventricular or aberrantly conducted complexes Left axis deviation Septal infarct (cited on or before 19-Dec-2024) Anterior infarct (cited on or before 19-Dec-2024) Inferior infarct (cited on or before 19-Dec-2024) QTcB >= 480 msec Abnormal ECG When compared with ECG of 19-Dec-2024 14:06, No significant change Confirmed by Fabio Everett ([id number]) on 12/20/2024 1:00:27 PM Referred By: REFERRED SELF Confirmed By: Fabio Everett
--- NOTE | 2024-12-22 19:06 | Coding Query ---
CONGESTIVE HEART FAILURE To Promote full compliance with coding requirements relating to patient care, physician participation is requested in all cases of gas refrigerator servicer uncertainty. Please assist us with the following questions. A diagnosis of Congestive Heart Failure is documented in the patient's medical record. To accurately code this diagnosis and to compare patient severity, we ask that you specify the type of heart failure by placing an X within the parenthesis (x). The medical record reflects the following clinical evidence: Clinical Indicators: Congestive heart failure: Plan: Initially patient wished to be discharged from the emergency room however left ventricular ejection fraction appears reduced on POCUS at bedside and with his ongoing rapid ventricular rate he is amenable to admission at this time Acute heart failure with unknown ejection fraction Lasix 40mg IV daily Increase metoprolol succinate to 50mg PO BID Will hold telmisartan/HCTZ for potential switch to Entresto if LVEF confirmed < 40% on echocardiogram Consider SGLT2 inhibitor with concurrent diabetes diagnosis Strict I's and O's, daily weight TTE Consult cardiology Risk Factor(s): AF with RVR, hypertension, DM Treatment: As above SYSTOLIC HEART FAILURE ( ) Acute ( ) Chronic ( ) Acute on Chronic ( ) Rheumatic ( ) Unknown DIASTOLIC HEART FAILURE ( ) Acute ( ) Chronic ( ) Acute on Chronic ( ) Rheumatic ( ) Unknown COMBINED SYSTOLIC AND DIASTOLIC HEART FAILURE ( ) Acute ( ) Chronic ( ) Acute on Chronic ( ) Rheumatic ( ) Unknown Was the CHF Present On Admission? Please check the appropriate box: ( ) Present on Admission ( ) Not Present On Admission ( ) Clinically undetermined Thank you Katerine RAZA
--- NOTE | 2025-01-09 20:51 | Coding Query ---
CONGESTIVE HEART FAILURE To Promote full compliance with coding requirements relating to patient care, physician participation is requested in all cases of physical integration practitioner uncertainty. Please assist us with the following questions. A diagnosis of Congestive Heart Failure is documented in the patient's medical record. To accurately code this diagnosis and to compare patient severity, we ask that you specify the type of heart failure by placing an X within the parenthesis (x). The medical record reflects the following clinical evidence: Clinical Indicators: Congestive heart failure: Plan: Initially patient wished to be discharged from the emergency room however left ventricular ejection fraction appears reduced on POCUS at bedside and with his ongoing rapid ventricular rate he is amenable to admission at this time Acute heart failure with unknown ejection fraction Lasix 40mg IV daily Increase metoprolol succinate to 50mg PO BID Will hold telmisartan/HCTZ for potential switch to Entresto if LVEF confirmed < 40% on echocardiogram Consider SGLT2 inhibitor with concurrent diabetes diagnosis Strict I's and O's, daily weight TTE Consult cardiology Risk Factor(s): AF with RVR, hypertension, DM Treatment: As above SYSTOLIC HEART FAILURE (unknown type on admission) ( X) Acute ( ) Chronic ( ) Acute on Chronic ( ) Rheumatic ( ) Unknown DIASTOLIC HEART FAILURE ( ) Acute ( ) Chronic ( ) Acute on Chronic ( ) Rheumatic ( ) Unknown COMBINED SYSTOLIC AND DIASTOLIC HEART FAILURE ( ) Acute ( ) Chronic ( ) Acute on Chronic ( ) Rheumatic ( ) Unknown Was the CHF Present On Admission? Please check the appropriate box: (X ) Present on Admission ( ) Not Present On Admission ( ) Clinically undetermined Thank you Katerine RAZA
== END 2024-12-20 12:43 | disposition home or self-care (01) | DRG 291 ==
LOC: ED 12:40 → SUATTDRO 19:50 → 4W 19:50